=== PATIENT | female | born 1970 | race Caucasian/White ===

== ENCOUNTER 2017-08-29 18:25 | Emergency (ER) | payer OTHER ==
--- NOTE | 2017-08-29 18:48 | EDPHY ---
H & P Stated Complaint: FEVER, COUGH, ABDOMINAL PAIN Time Seen by Provider: 08/29/17 18:47 HPI/ROS: HPI: This is a 46-year-old female who presents with Chief Complaint: FEVER, COUGH, ABDOMINAL PAIN Location: Upper respiratory Quality: Cough, runny nose Duration: Since Friday Signs and Symptoms: + fever, + nausea, no vomiting, no hematemesis, no blood in stool, no abdominal bloating, + diarrhea, no back pain, no urinary symptoms, no testicular/groin pain, no indigestion, no chest pain, no shortness of breath Timing: Worsening Severity: Moderate Context: Patient has history of hypertension presents with upper respiratory symptoms that started Friday including runny nose, nasal congestion, fevers. She thought that she had the flu and was taken Tylenol, drinking fluids and trying to rest. Today she started to developed some generalized abdominal pain accompanied by nausea but denies vomiting 3-4 loose stools. Denies hematemesis/ back pain/urinary symptoms. She has no history of kidney stones. She has had 2 vaginal deliveries. Denies any abdominal surgeries. She does report a nonproductive cough but attributes this to her lisinopril. She reports that her cough is not worsened over the last week. Modifying Factors: See above Comment: ROS: see HPI Constitutional: +fever, no chills, no weight loss Eyes: No blurred vision Respiratory: No shortness of breath, + cough Cardiovascular: No chest pain, no palpitations Gastrointestinal: + nausea, no vomiting, no diarrhea, no hematemesis, no blood in stool Genitourinary: No dysuria, no blood in urine Extremities: No myalgias, no edema Neurologic: No weakness, no numbness Skin: No rashes, no petechiae Hematologic: No bruising, no bleeding MEDICAL/SURGICAL/SOCIAL HISTORY: Medical history: Hypertension takes lisinopril Surgical history: Denies Social history: Employed CONSTITUTIONAL: Ill-appearing middle-aged female, awake and alert, no obvious distress HEENT: Atraumatic and normocephalic, PERRL, EOMI. Tympanic membranes clear. Oropharynx clear, no exudate and moist pink mucosa. Airway patent. No lymphadenopathy. No meningismus. Cardiovascular: Normal S1/S2, mild tachycardia, regular rhythm, without murmur rub or gallop. PULMONARY/CHEST: Symmetrical and nontender. Clear to auscultation bilaterally. Good air movement. No accessory muscle usage. ABDOMEN: Soft, obesely round, nondistended, moderate generalized tenderness; no rebound, + guarding, no peritoneal signs, no masses or organomegaly. No CVAT. EXTREMITIES: 2/2 pulses, strength 5/5, no deformities, no clubbing, no cyanosis or edema. NEUROLOGICAL: no focal neuro deficits. GCS 15. SKIN: Warm and dry, no erythema. no rash. Good capillary refill. Source: Patient Exam Limitations: No limitations - Personal History Current Tetanus/Diphtheria Vaccine: Yes Current Tetanus Diphtheria and Acellular Pertussis (TDAP): Yes - Medical/Surgical History Hx Asthma: No Hx Chronic Respiratory Disease: No Hx Diabetes: No Hx Cardiac Disease: No Hx Renal Disease: No Hx Cirrhosis: No Hx Alcoholism: No Hx HIV/AIDS: No Hx Splenectomy or Spleen Trauma: No Other PMH: none - Social History Smoking Status: Never smoked Constitutional: Initial Vital Signs Temperature (C) 37.4 C 08/29/17 18:36 Heart Rate 102 H 08/29/17 18:36 Respiratory Rate 16 08/29/17 18:36 Blood Pressure 173/105 H 08/29/17 18:36 O2 Sat (%) 98 08/29/17 18:36 O2 Delivery Mode Room Air O2 (L/minute) 2 Allergies/Adverse Reactions: No Known Allergies Allergy (Unverified 03/31/11 03:53) Home Medications: Medication Instructions Recorded Lisinopril 08/29/17 Ondansetron Odt [Zofran Odt 4 mg 4 mg PO Q4 PRN #12 tab 08/29/17 (*)] oxyCODONE/APAP 5/325 [Percocet 1 - 2 tab PO Q4H PRN #10 tab 08/29/17 5/325 (*)] Medical Decision Making - Diagnostics Imaging Results: Imaging Impressions Abdomen/Pelvis CT 08/29/17 19:56 Impression: 1. Nonobstructive right nephrolithiasis, with a 3-mm calculus upper pole right kidney. 2. No hydronephrosis or ureterolithiasis. 3. No left nephrolithiasis. 4. No evidence of appendicitis or bowel obstruction. 5. Multiple mesenteric lymph nodes, with possible mild thickening of the transverse colon, suggesting mild gastroenteritis or transverse colitis. Recommend follow-up CT abdomen and pelvis in 1-3 months for further evaluate the adenopathy. Attention: This CT examination is specifically designed to evaluate patients who are clinically suspected of having acute obstructive uropathy. This examination does not use radiographic contrast, and as such, provides only a limited evaluation of the abdomen, pelvis, and retroperitoneum. If there is further clinical suspicion for pathological conditions other than obstructive uropathy, a complete CT evaluation of the abdomen and pelvis utilizing intravenous, oral, and rectal contrast should be considered. Findings and recommendations discussed with Emergency Department Physician Oracle Developer, Catherine Warren PA-C, at 2028 hours, on August 29, 2017. Final report concurs with initial preliminary interpretation. ED Course/Re-evaluation: Influenza test, labs, IV fluids, IV medications, oral medications, CT abdomen and pelvis scan ordered Given 1 L normal saline, IV Zofran, IV morphine upon arrival 1950: Labs reviewed showed 12 K WBC, H&H 8.7/32.4 microcytic tight, creatinine 1.8, CT abdomen and pelvis scan shows 3 mm kidney stone in the right side; no hydronephrosis; multiple mesenteric lymph nodes; no appendicitis/obstruction urinalysis showing hematuria kidney stones is in the differential. Influenza negative. Patient reports that she was diagnosed with iron deficiency during both her ; not take iron supplementation. She denies any shortness of breath/chest pain/dizziness/cardiac disease. Blood Transfusion not indicated at this time. Reassessed abdomen; soft and nontender. Patient reports that she is 75% improved. Asking to drink some quita rule and eat Hadley crackers. Will have her follow up outpatient for anemia workup; suspect iron deficiency as well as repeat urinalysis for hematuria. This patient was seen under the supervision of my secondary supervising physician. I evaluated care for this patient independently. Differential Diagnosis: Abdominal pain including but not limited to appendicitis, cholecystitis, gastritis and urinary tract infection. - Data Points Laboratory Results: Laboratory Results 08/29/17 19:00 08/29/17 19:00 08/29/17 08/29/17 08/29/17 19:00 19:00 19:00 WBC RBC Hgb Hct MCV MCH MCHC RDW Plt Count MPV Neut % (Auto) Lymph % (Auto) [place] % (Auto) Eos % (Auto) Baso % (Auto) Nucleat RBC Rel Count Absolute Neuts (auto) Absolute Lymphs (auto) Absolute Monos (auto) Absolute Eos (auto) Absolute Basos (auto) Absolute Nucleated RBC Immature Gran % Immature Gran # Platelet Estimate Hypochromasia Microcytic Cells Smear Review By Sodium 136 mEq/L mEq/L (135-145) Potassium 3.8 mEq/L mEq/L (3.5-5.2) Chloride 98 mEq/L mEq/L (97-110) Carbon Dioxide 24 mEq/l mEq/l (22-31) Anion Gap 14 mEq/L mEq/L (8-16) BUN 18 mg/dL mg/dL (7-23) Creatinine 1.8 mg/dL H mg/dL (0.6-1.0) Estimated GFR 31 Glucose 115 mg/dL H mg/dL (70-100) Calcium 8.9 mg/dL mg/dL (8.5-10.4) Total Bilirubin 0.7 mg/dL mg/dL (0.1-1.4) Conjugated Bilirubin 0.4 mg/dL mg/dL (0.0-0.5) Unconjugated Bilirubin 0.3 mg/dL mg/dL (0.0-1.1) AST 21 IU/L IU/L (14-46) ALT 26 IU/L IU/L (9-52) Alkaline Phosphatase 143 IU/L H IU/L (38-126) Total Protein 8.4 g/dL H g/dL (6.3-8.2) Albumin 3.9 g/dL g/dL (3.5-5.0) Lipase 198 IU/L IU/L (23-300) Beta HCG, Qual NEGATIVE Urine Color Urine Appearance Urine pH Ur Specific [place] Urine Protein Urine Ketones Urine Blood Urine Nitrate Urine Bilirubin Urine Urobilinogen Ur Leukocyte Esterase Urine RBC Urine WBC Ur Epithelial Cells Hyaline Casts WBC Casts Urine Mucus Urine Glucose Nasal Influenza A PCR NEGATIVE FOR FLU A (NEGATIVE) Nasal Influenza B PCR NEGATIVE FOR FLU B (NEGATIVE) 08/29/17 08/29/17 19:00 18:50 WBC 12.30 10^3/uL H 10^3/uL (3.80-9.50) RBC 4.93 10^6/uL 10^6/uL (4.18-5.33) Hgb 8.7 g/dL L g/dL (12.6-16.3) Hct 32.4 % L % (38.0-47.0) MCV 65.7 fL L fL (81.5-99.8) MCH 17.6 pg L pg (27.9-34.1) MCHC 26.9 g/dL L g/dL (32.4-36.7) RDW 19.4 % H % (11.5-15.2) Plt Count 429 10^3/uL H 10^3/uL (150-400) MPV 8.6 fL L fL (8.7-11.7) Neut % (Auto) 82.0 % H % (39.3-74.2) Lymph % (Auto) 11.0 % L % (15.0-45.0) [place] % (Auto) 6.1 % % (4.5-13.0) Eos % (Auto) 0.2 % L % (0.6-7.6) Baso % (Auto) 0.3 % % (0.3-1.7) Nucleat RBC Rel Count 0.0 % % (0.0-0.2) Absolute Neuts (auto) 10.09 10^3/uL H 10^3/uL (1.70-6.50) Absolute Lymphs (auto) 1.35 10^3/uL 10^3/uL (1.00-3.00) Absolute Monos (auto) 0.75 10^3/uL 10^3/uL (0.30-0.80) Absolute Eos (auto) 0.02 10^3/uL L 10^3/uL (0.03-0.40) Absolute Basos (auto) 0.04 10^3/uL 10^3/uL (0.02-0.10) Absolute Nucleated RBC 0.00 10^3/uL 10^3/uL (0-0.01) Immature Gran % 0.4 % % (0.0-1.1) Immature Gran # 0.05 10^3/uL 10^3/uL (0.00-0.10) Platelet Estimate ADEQUATE (ADEQ) Hypochromasia 3+ H Microcytic Cells 3+ H Smear Review By Pending Sodium Potassium Chloride Carbon Dioxide Anion Gap BUN Creatinine Estimated GFR Glucose Calcium Total Bilirubin Conjugated Bilirubin Unconjugated Bilirubin AST ALT Alkaline Phosphatase Total Protein Albumin Lipase Beta HCG, Qual Urine Color YELLOW Urine Appearance MODERATELY TURBID Urine pH 5.0 (5.0-7.5) Ur Specific [place] 1.017 (1.002-1.030) Urine Protein 2+ H (NEGATIVE) Urine Ketones NEGATIVE (NEGATIVE) Urine Blood 3+ H (NEGATIVE) Urine Nitrate NEGATIVE (NEGATIVE) Urine Bilirubin NEGATIVE (NEGATIVE) Urine Urobilinogen NEGATIVE EU EU (0.2-1.0) Ur Leukocyte Esterase NEGATIVE (NEGATIVE) Urine RBC 50-182 /hpf H /hpf (0-3) Urine WBC 25-50 /hpf H /hpf (0-3) Ur Epithelial Cells TRACE /lpf /lpf (NONE-1+) Hyaline Casts 25-50 /lpf H /lpf (0-1) WBC Casts 1-5 /lpf /lpf (NONE SEEN) Urine Mucus 1+ /lpf /lpf (NONE-1+) Urine Glucose NEGATIVE (NEGATIVE) Nasal Influenza A PCR Nasal Influenza B PCR Medications Given: Discontinued Medications Sodium Chloride (Ns) 1,000 mls @ 0 mls/hr IV EDNOW ONE; Wide Open PRN Reason: Protocol Stop: 08/29/17 18:57 Last Admin: 08/29/17 19:05 Dose: 1,000 mls Morphine Sulfate (Morphine) 6 mg IVP EDNOW ONE Stop: 08/29/17 18:57 Last Admin: 08/29/17 19:08 Dose: 6 mg Ondansetron HCl (Zofran) 4 mg IVP EDNOW ONE Stop: 08/29/17 18:57 Last Admin: 08/29/17 19:04 Dose: 4 mg Ondansetron HCl (Zofran Odt 4 Mg Prepack#2) 1 btl TAKEHOME EDNOW ONE Stop: 08/29/17 20:38 Last Admin: 08/29/17 21:00 Dose: 1 btl Departure - Departure Disposition: Home, Routine, Self-Care Clinical Impression: Microcytic anemia, Viral gastroenteritis, Right kidney stone Hematuria Qualifiers: Hematuria type: unspecified type Qualified Code(s): R31.9 - Hematuria, unspecified Condition: Good Instructions: Oxycodone/Acetaminophen (By mouth), Ondansetron (By mouth), Kidney Stones (ED), Iron Deficiency Anemia (ED), Gastroenteritis (ED), Hematuria (ED) Additional Instructions: Consume a minimum of 8-10 glasses of water or electrolyte fluid replacement drinks that include Gatorade, Powerade, Pedialyte. Eat a bland diet for the next 48 hours and then slowly advance as tolerated. Take Zofran 1 tab every 4 hours as needed for nausea, vomiting. Return to the Emergency Room if symptoms do not resolve in the next 48-72 hours , you spike a fever > 102 F, or experience intractable abdominal pain/nausea/ vomiting. Please follow-up with your primary care provider in 1 week for repeat CBC to document interval change of your anemia as well as repeat urinalysis to document interval change of blood in your urine. You need to have anemia worked up to determine if you have iron deficiency and start supplementation if needed. CT abdomen and pelvis scan today showed lymph nodes within her abdomen; it is recommended to have a repeat follow-up CT scan in 1-2 months. Referrals: Ruthie Fernando, DO [Primary Care Provider] - As per Instructions Prescriptions: Ondansetron Odt [Zofran Odt 4 mg (*)] 4 mg PO Q4 PRN #12 tab PRN Reason: Nausea/Vomiting, Use 1st oxyCODONE/APAP 5/325 [Percocet 5/325 (*)] 1 - 2 tab PO Q4H PRN #10 tab PRN Reason: Pain, Severe
[2017-08-29] MEDS ORDERED: ONDANSETRON 4 MG/2 ML VIAL ONE (18:49)
[2017-08-29] MEDS ORDERED: ONDANSETRON 4 MG/2 ML VIAL IVP ONE (18:56)
[2017-08-29] MEDS ORDERED: NS 1,000 ML IV ONE (18:56)
[2017-08-29 19:25] LABS: PLATELET COUNT 429 10^3/uL (150-400)
[2017-08-29] MEDS ORDERED: ONDANSETRON 4MG PREPACK#2 BTL TAKEHOME ONE (20:37)
[2017-08-29 21:10] VITALS: TEMP 98.2
[2017-08-29 21:13] VITALS: BP 139/80; PULSE 89; RESP 18; O2SAT 98
== END 2017-08-29 21:13 | disposition home or self-care (01) ==
DX: D50.9 Iron deficiency anemia, unspecified (principal); A08.4 Viral intestinal infection, unspecified; N20.0 Calculus of kidney; R31.9 Hematuria, unspecified; I10 Essential (primary) hypertension; E86.9 Volume depletion, unspecified
CPT/HCPCS: 96374; J2270; J2405

== ENCOUNTER → 2018-02-20 | Outpatient (CLI) | payer OTHER | LOC: FIMAGING 08:59 | PROVIDERS: ATTEND Family Medicine | DX: N20.0 Calculus of kidney (principal); R59.1 Generalized enlarged lymph nodes ==